=== PATIENT | male | born 1995 | race Caucasian/White ===

== ENCOUNTER 2017-06-30 07:41 | Day surgery (SDC) | payer OTHER ==
[2017-06-27 11:36] VITALS: BMI 26.3
[2017-06-30] VITALS (13 sets, daily range): BP systolic 114–157; BP diastolic 60–74; PULSE 64–84; RESP 14–27; Ht 185.4 cm; Wt 89.0 kg
[~2017-06-30] VITALS: Ht 185.4 cm; Wt 89.0 kg
[~2017-06-30 07:41] MED LIST: LIDOCAINE 2% (SDV) 5 ML INJ ONE; ONDANSETRON 4 MG INJ ONE; PROPOFOL 200 MG INJ ONE; ROCURONIUM 50 MG INJ ONE; SUCCINYLCHOLINE CHLORIDE 100 MG/5 ML SYG IV ONE
[2017-06-30] MEDS ORDERED: HYDR-906 PO (07:58)
[2017-06-30] MEDS ORDERED: ROPIVACAINE 0.5 % 30 ML VIAL ONE ×2 (10:10→10:52)
--- NOTE | 2017-06-30 10:48 | HPN ---
Date/Time of Note Date/Time of Note DATE: 06/30/17 TIME: 10:48 Interval H&P Admission Note Pt. seen H&P reviewed: No system changes JERONIMO NASSAR MD Jun 30, 2017 10:48
[2017-06-30] MEDS ORDERED: SOD CHLORIDE 0.9% 1,000 ML IV SCH (10:51)
[2017-06-30] MEDS ORDERED: POVIDONE IODINE 10% 28.4 GM OINT ONE (10:52)
[2017-06-30] MEDS ORDERED: POLYMYXIN/BACITRACIN 1L IRRIG ONE (10:53)
--- NOTE | 2017-06-30 10:54 | OPPN ---
Date/Time of Note Date/Time of Note DATE: 06/30/17 TIME: 10:52 Operative Report Preoperative Diagnosis R talar OCD lesion Postoperative Diagnosis R talar OCD lesion Operation/Procedure Performed R ankle arthroscopy, OCD debridement, drilling, and BMAC Surgeon Meagan Ordoñez signature line fire control assistant Jose Armando Valerio Anesthesia: general Estimated blood loss: minimal Transfusion Required none Specimen none Grafts/Implants BMAC Complications none JERONIMO NASSAR MD Jun 30, 2017 10:54
[2017-06-30] MEDS ORDERED: OXYCODONE/ACETAMINOPHEN (5/325) TAB PO PRN ×4 (11:00→12:00)
[2017-06-30] MEDS ORDERED: morphine 2 MG INJ IV PRN (11:00)
[2017-06-30] MEDS ORDERED: POLYMYXIN/BACITRACIN 1L IRRIG IRR ONE (11:00)
[2017-06-30] MEDS ORDERED: ONDANSETRON 4 MG INJ IV PRN ×2 (11:00→12:00)
[2017-06-30] MEDS ORDERED: HYDROmorphONE (0.2 MG/ML) 10ML SYG IV PRN ×3 (12:00)
[2017-06-30] MEDS ORDERED: MEPERIDINE 25 MG INJ IV PRN (12:00)
[2017-06-30] MEDS ORDERED: METOCLOPRAMIDE 10 MG INJ IV PRN (12:00)
[2017-06-30] MEDS ORDERED: FENTAnyl 50 MCG/ML VIAL IV PRN ×3 (12:00)
[2017-06-30] MEDS ORDERED: hydrALAzine 20 MG INJ IV PRN (12:00)
[2017-06-30] MEDS ORDERED: EPHEDrine SULFATE 50 MG/5 ML SYG IV PRN (12:00)
[2017-06-30] MEDS ORDERED: LABETALOL HCL 20MG INJ IV PRN (12:00)
[2017-06-30] MEDS ORDERED: MIDAZOLAM 1 MG/ML 2 ML INJ IV PRN (12:00)
[2017-06-30] MEDS ORDERED: DIPHENHYDRAMINE 50 MG INJ IV PRN (12:00)
[2017-06-30] MEDS ORDERED: HYDROmorphONE (0.2 MG/ML) 10ML SYG IV ONE (14:19)
[2017-06-30] MEDS ORDERED: ONDANSETRON 4 MG INJ ONE (14:20)
--- NOTE | 2017-06-30 14:20 | OPPN ---
Date/Time of Note Date/Time of Note DATE: 06/30/17 TIME: 14:18 Operative Report Preoperative Diagnosis L great toe plantar plate rupture Postoperative Diagnosis L great toe plantar plate rupture Operation/Procedure Performed L open plantar plate repair Surgeon see signature line railway yard assistant Jose Armando Valerio Anesthesia: general Estimated blood loss: minimal Transfusion Required none Specimen none Grafts/Implants none Complications none JERONIMO NASSAR MD Jun 30, 2017 2:20 pm
--- NOTE | 2017-07-01 03:21 | OPR ---
DATE OF OPERATION: 06/30/2017 PREOPERATIVE DIAGNOSES: 1. Left foot great toe metatarsophalangeal joint, torn plantar plate. 2. Adhesions and scar tissue in the metatarsophalangeal joint. 3. Tenosynovitis of the flexor hallucis longus. POSTOPERATIVE DIAGNOSES: 1. Left foot great toe metatarsophalangeal joint torn plate. 2. Adhesions and scar tissue of the metatarsophalangeal joint. 3. Tenosynovitis of the flexor hallucis longus. OPERATION PERFORMED: 1. Repair of the torn plantar plate of the great toe metatarsophalangeal joint of the left foot with suture anchors. 2. Release of the flexor digitorum brevis fascia. 3. Removal of scarring and adhesions of metatarsophalangeal joint. 4. Tenolysis of the flexor hallucis longus. 5. Use of fluoroscopy to verify position of the sesamoids and the suture anchors. 6. Short-leg great toe spica cast. SURGEON: Jeronimo Rodriguez MD PROCESS CONTROLS TECHNICIAN: Chapincito Rodriguez MD. SECOND PAPER CUTTING MACHINE OPERATOR: Jose Armando Valerio MD. ANESTHESIA: General with popliteal block. TOURNIQUET TIME: 80 minutes. DESCRIPTION OF PROCEDURE: The patient taken to the operating room and placed in supine position. Satisfactory popliteal block was given, satisfactory general anesthesia was administered, 2 grams Ancef given intravenously. The left foot was prepped and draped in the usual manner. A J incision was made along the plantar medial aspect of the great toe metatarsophalangeal joint, across plantarly along the flexion crease at the base of the proximal phalanx. Dissection was carried down to subcutaneous tissue. Extreme care was taken to identify and protect the plantar medial digital nerve. A vein retractor was placed over it to protect it at all times. A longitudinal incision was made at the level of the abductor hallucis tendon, which was split in line with its fibers so we could examine both to ensure extraarticular portions of the plantar plate complex. Plantar plate was turned off the base of the proximal phalanx. Sesamoids were intact. Mobilization was performed of the plantar plate, sesamoid complex, and soft tissues to bring the sesamoids slightly more distally. Adhesions and scar tissue were removed throughout the procedure. The flexor hallucis longus tendon was identified intact. Tenolysis was performed. Release of the flexor digitorum brevis fascia was performed to facilitate mobilization. Two Mini Quickanchor Plus suture anchors with 0 FiberWire were placed under fluoroscopic control in the appropriate position along the base of the proximal phalanx to reattach the medial and lateral aspects of the plantar plate. The sutures were then passed through the plantar plate on either side of the FHL. The sutures were tied with the toe in plantar flexion. Additional sutures were placed to reinforce the repair. Fluoroscopic view showed that the sesamoids were in good position, as were the suture anchors. Remaining plantar plate was closed with 2-0 and 3-0 running PDS. Plantar plate was repaired with the toe in slight flexion but we made sure that we could still dorsiflex the toe passively. Tourniquet was released, bleeders were coagulated, wounds irrigated with antibiotic solution. The plantar medial digital nerve was completely intact. There was one very small, thin branch more dorsally that had to be sacrificed since it was right in the way of the incision. We tried to mobilize it, but it was impossible to mobilize completely ; however, the main nerve was left intact. The subcutaneous tissue was closed with minimal 3-0 undyed Vicryl and the skin with 5-0 black nylon. A compression dressing was applied as well as a plaster toe spica cast to hold the foot in 10 degrees of plantar flexion. At the end of the procedure sponge and needle counts were correct. The patient tolerated the procedure well and was taken to recovery room in stable condition. PAPER CUTTING MACHINE OPERATOR ORTHOPEDIC SURGEON: During the operation, the services of an orthopedic physician surgical instruments inspector was medically indicated and necessary to provide exposure to the operative site for the surgical procedure and to maintain the limb in a proper position to carry out the operation safely and effectively. Without a skilled qualified assistant family teacher being present, it would have extended the operative procedure and made the procedure technically more difficult to perform. Dictated By: JERONIMO VELASCO/GLEN Conf#: [id number] DID#: [id number] FLORESITA
--- NOTE | 2017-07-02 13:00 | RADRPT ---
PROCEDURE: Intraoperative imaging of the left foot with fluoroscopy. CLINICAL INDICATION: Left foot pain. Intraoperative. TECHNIQUE: 6 images of the left foot were obtained in the operating room with an image intensifier . No radiologist was in attendance. Fluoroscopy time is 0.1 minute. COMPARISON: No prior study is available for comparison. FINDINGS: Images demonstrate surgical instruments overlying the first metatarsal phalangeal joint and placemen t of 2 anchors at this site. IMPRESSION: 1. Intraoperative imaging of the left foot. RPTAT: QQ .Uri Covington MD, MD Date Time Electronically viewed and signed by .Uri Covington MD, on 07/02/2017 12:59 .R/
== END 2017-06-30 15:45 | disposition home or self-care (01) ==
LOC: SDS 07:41
PROVIDERS: ATTEND Orthopaedic Surgery
DX: S93.522A Sprain of metatarsophalangeal joint of left great toe, initial encounter (principal); M24.675 Ankylosis, left foot; M65.862 Other synovitis and tenosynovitis, left lower leg; W50.0XXA Accidental hit or strike by another person, initial encounter; Y93.61 Activity, american tackle football; Y92.39 Other specified sports and athletic area as the place of occurrence of the external cause
CPT/HCPCS: 27680; 28899; 73630; J1170; J2405; J2795